=== PATIENT | female | born 1955 | race Caucasian/White ===

== ENCOUNTER → 2019-08-28 | Outpatient (CLI) | payer BC ==
[~2019-08-28] MED LIST: MULTIPLE VITAMI1 CAP PO; NORCO 325 MG-51 TAB PO
== END ==
LOC: ZCOL.LAB 12:27
DX: R05 Cough (principal)

== ENCOUNTER 2021-06-22 14:21 | Emergency (ER) | payer BC ==
[~2021-06-22] VITALS: Ht 172.7 cm; Wt 90.9 kg
[2021-06-22 16:00] VITALS: BP 133/78; PULSE 67; TEMP 98
== END 2021-06-22 16:15 | disposition home or self-care (01) ==
LOC: COL.ER 14:21
DX: T42.4X1A Poisoning by benzodiazepines, accidental (unintentional), initial encounter (principal)

== ENCOUNTER → 2022-12-22 | Outpatient (CLI) | payer MEDICARE, OTHER | LOC: CANSCHCLI → MC.RAD 10:45 | DX: Z12.31 Encounter for screening mammogram for malignant neoplasm of breast (principal) ==

== ENCOUNTER → 2023-12-27 | Outpatient (CLI) | payer MEDICARE, OTHER | LOC: MC.RAD 12-26 10:15 | DX: Z12.31 Encounter for screening mammogram for malignant neoplasm of breast (principal) ==